=== PATIENT | male | born 1995 | race Caucasian/White ===

== ENCOUNTER 2024-02-08 11:03 | Emergency (ER) | payer OTHER ==
[~2024-02-08] VITALS: Ht 177.8 cm; Wt 68.0 kg
[2024-02-08 11:45] VITALS: BP 129/84
== END 2024-02-08 11:50 | disposition home or self-care (01) ==
LOC: ER 11:03
DX: Z48.03 Encounter for change or removal of drains (principal)
CPT/HCPCS: 99282